=== PATIENT | female | born 1970 | race Caucasian/White ===

== ENCOUNTER → 2017-12-07 | Emergency (ER) | payer OTHER ==
[~2017-12-07] VITALS: Ht 160 cm; Wt 59.0 kg
[~2017-12-07] MED LIST: FIORICET 50-321 EACH PO; FLONASE ALLERG9.9 ML NASAL; KETO10TA2 PO; LEVSIN/SL0.125 MG SL; MEDROLPACK PO; ZITHROMAX TRI-500 MG PO; ZOFRAN4 MG PO
== END | disposition home or self-care (01) ==
LOC: ER 23:39
DX: J32.8 Other chronic sinusitis (principal); E86.0 Dehydration; R50.9 Fever, unspecified

== ENCOUNTER 2018-06-14 23:22 | Emergency (ER) | payer OTHER ==
[~2018-06-14] VITALS: Ht 160 cm; Wt 61.2 kg
[2018-06-15] MEDS ORDERED: ZITHROMAX500 MG PO (06:38)
[2018-06-15] MEDS ORDERED: MEDROLPACK PO (06:38)
[2018-06-15] MEDS ORDERED: MUCINEX DM ER1 EAC1 PO (06:38)
[2018-06-15] MEDS ORDERED: BUDESONIDE0.5 MG/2 M IH (06:38)
[2018-06-15] MEDS ORDERED: PROMETH-CODEIN 65 ML PO (06:38)
[2018-06-15] MEDS ORDERED: IPRAT-ALBUT 0.5-3 ML IH (06:38)
== END 2018-06-15 08:10 | disposition home or self-care (01) ==
LOC: ER 23:22
DX: J06.9 Acute upper respiratory infection, unspecified (principal)

== ENCOUNTER 2018-11-15 12:06 | Emergency (ER) | payer OTHER ==
[~2018-11-15] VITALS: Ht 160 cm; Wt 63.5 kg
[~2018-11-15 12:06] MED LIST changes: +BUDESONIDE0.5 MG/2 M IH; +IPRAT-ALBUT 0.5-3 ML IH; +MUCINEX DM ER1 EAC1 PO; +PROMETH-CODEIN 65 ML PO; +ZITHROMAX500 MG PO
== END 2018-11-15 16:22 | disposition home or self-care (01) ==
LOC: ER 12:06
DX: B34.9 Viral infection, unspecified (principal)

== ENCOUNTER 2019-08-02 01:08 | Emergency (ER) | payer OTHER ==
[~2019-08-02] VITALS: Ht 160 cm; Wt 66.2 kg
[2019-08-02] MEDS ORDERED: LISINOPRIL10 MG (01:24)
== END 2019-08-02 14:16 | disposition home or self-care (01) ==
LOC: ER 01:08 → CPU-OBS 01:10 → ER 01:10
DX: R07.89 Other chest pain (principal); M94.0 Chondrocostal junction syndrome [Tietze]
CPT/HCPCS: G0378; G0379; 93005

== ENCOUNTER 2021-03-07 15:04 | Emergency (ER) | payer OTHER ==
[~2021-03-07] VITALS: Ht 160 cm; Wt 65.8 kg
[~2021-03-07 15:04] MED LIST changes: +LISINOPRIL10 MG
[2021-03-07] MEDS ORDERED: IVERMECTIN3 MG PO (22:15)
[2021-03-07] MEDS ORDERED: PULMICORT FLEX90 MCG IH (22:17)
[2021-03-07] MEDS ORDERED: PROVENTIL HFA6.7 GM IH (22:22)
== END 2021-03-07 22:36 | disposition home or self-care (01) ==
LOC: ER 15:04
DX: U07.1 COVID-19 (principal); R05 Cough

== ENCOUNTER 2021-10-19 22:38 | Emergency (ER) | payer OTHER ==
[~2021-10-19] VITALS: Ht 160 cm; Wt 68.5 kg
[~2021-10-19 22:38] MED LIST changes: +IVERMECTIN3 MG PO; +PROVENTIL HFA6.7 GM IH; +PULMICORT FLEX90 MCG IH
[2021-10-19] MEDS ORDERED: LOPRESSOR HCT1 EACH (22:49)
[2021-10-20] MEDS ORDERED: PEPCID40 MG PO (05:35)
[2021-10-20] MEDS ORDERED: LEVSIN/SL0.125 MG SL (05:35)
[2021-10-20] MEDS ORDERED: PROTONIX40 MG PO (05:35)
[2021-10-20] MEDS ORDERED: ZOFRAN8 MG PO (05:35)
== END 2021-10-20 06:02 ==
LOC: ER 22:38
DX: R10.9 Unspecified abdominal pain (principal)

== ENCOUNTER 2023-01-01 23:15 | Emergency (ER) | payer OTHER ==
[~2023-01-01] VITALS: Ht 160 cm; Wt 73.0 kg
[~2023-01-01 23:15] MED LIST changes: +LOPRESSOR HCT1 EACH; +PEPCID40 MG PO; +PROTONIX40 MG PO; +ZOFRAN8 MG PO
[2023-01-01] MEDS ORDERED: NEURONTIN800 MG PO (23:26)
[2023-01-01] MEDS ORDERED: ZESTRIL10 M1 PO (23:26)
[2023-01-01] MEDS ORDERED: ZIPSOR25 MG (23:28)
[2023-01-01] MEDS ORDERED: NORFLEX100MG PO (23:29)
== END 2023-01-02 05:43 | disposition home or self-care (01) ==
LOC: ER 23:15
DX: N20.1 Calculus of ureter (principal)

== ENCOUNTER 2024-03-02 23:30 | Emergency (ER) | payer OTHER ==
[~2024-03-02] VITALS: Ht 167.6 cm; Wt 72.6 kg
[~2024-03-02 23:30] MED LIST changes: +NEURONTIN800 MG PO; +NORFLEX100MG PO; +ZESTRIL10 M1 PO; +ZIPSOR25 MG
[2024-03-03] MEDS ORDERED: MEPERIDINE HCL/PF 50 MG/ML VIAL IM STA (00:42)
[2024-03-03] MEDS ORDERED: ONDANSETRON HCL 2 MG/ML VIAL IV STA (00:42)
[2024-03-03] MEDS ORDERED: FAMOTIDINE/PF 20 MG/2 ML VIAL IV PUSH STA (00:42)
[2024-03-03] MEDS ORDERED: SODIUM CHLORIDE 0.45 % 1,000 ML IV ONE (00:45)
[2024-03-03 01:28] LABS: HEMATOCRIT 39.4 % (36.0-45.00); HEMOGLOBIN 13.2 g/dL (12.0-15.00); MEAN CELL VOLUME 88.6 fL (80.00-100.00); MEAN CORPUSCULAR HEMOGLOBIN 29.6 pg (27.00-32.0); MEAN CORPUSCULAR HGB CONC 33.4 g/dl (32.0-36.0); PLATELET COUNT 315 K/uL (150-450); RED BLOOD COUNT 4.45 M/uL (4.00-6.00); RED CELL DISTRIBUTION WIDTH 13.5 % (11.5-14.5)
[2024-03-03 01:37] LABS: PH,URINE 6.5 (5.0-8.0); URINE APPEARANCE Clear; URINE BILIRRUBIN Negative (NEGATIVE); URINE BLOOD Negative; URINE COLOR Yellow; URINE GLUCOSE Negative (NEGATIVE); URINE LEUKOCYTE Negative; URINE NITRATE Negative; URINE PROTEIN Negative (NEGATIVE); URINE UROBILINOGEN 0.2 E.U./dl
[2024-03-03 01:41] LABS: URINE BACTERIA 12.5 uL (0.0-1933); URINE EPITHELIAL CELLS 4.3 uL (0.0-38.8); URINE RBC 2.4 uL (0.0-20.8); URINE WBC 2.1 uL (0.0-23.2)
[2024-03-03 01:44] LABS: CALCIUM 9.3 mg/dL (8.5-10.1); CREATININE SERUM 0.69 mg/dL (0.55-1.02); GFR 88.66; POTASSIUM 4.1 mEq/L (3.5-5.1)
[2024-03-03] MEDS ORDERED: PEPCID40 MG PO (04:24)
[2024-03-03] MEDS ORDERED: PROTONIX40 MG PO (04:24)
[2024-03-03] MEDS ORDERED: NABUMETONE750 MG PO (04:24)
[2024-03-03] MEDS ORDERED: TAMS0.4C PO (04:24)
== END 2024-03-03 04:28 ==
LOC: ER 23:30
PROVIDERS: General Practice
DX: R10.9 Unspecified abdominal pain (principal); R10.13 Epigastric pain; I10 Essential (primary) hypertension; Z87.442 Personal history of urinary calculi; K57.30 Diverticulosis of large intestine without perforation or abscess without bleeding; N20.0 Calculus of kidney

== ENCOUNTER 2025-01-15 13:02 | Emergency (ER) | payer OTHER ==
[~2025-01-15] VITALS: Ht 160 cm; Wt 68.0 kg
[~2025-01-15 13:02] MED LIST changes: +NABUMETONE750 MG PO; +TAMS0.4C PO
[2025-01-15] MEDS ORDERED: FAMOTIDINE/PF 20 MG/2 ML VIAL IV ONE (14:45)
[2025-01-15] MEDS ORDERED: SUCRALFATE 1 G TABLET PO ONE (15:00)
[2025-01-15] MEDS ORDERED: FAMOTIDINE/PF 20 MG/2 ML VIAL ONE (15:35)
[2025-01-15 15:58] LABS: HEMATOCRIT 39.9 % (36.0-45.00); HEMOGLOBIN 13.7 g/dL (12.0-15.00); MEAN CORPUSCULAR HEMOGLOBIN 30.5 pg (27.00-32.0); MEAN CORPUSCULAR HGB CONC 34.3 g/dl (32.0-36.0); PLATELET COUNT 273 K/uL (150-450); RED BLOOD COUNT 4.48 M/uL (4.00-6.00); RED CELL DISTRIBUTION WIDTH 13.1 % (11.5-14.5)
[2025-01-15 16:15] LABS: ALBUMIN 3.9 gm/dL (3.4-5.0); BILIRUBIN TOTAL 0.3 mg/dL (0.3-1.2); CALCIUM 9.7 mg/dL (8.5-10.1); CREATININE SERUM 0.54 mg/dL (0.55-1.02); GFR 117.21; GLOBULINA 4.6 G/DL (2.4-3.5); POTASSIUM 3.76 mEq/L (3.5-5.1); TOTAL PROTEIN 8.5 gm/dL (6.4-8.2)
[2025-01-15] MEDS ORDERED: KETOROLAC TROMETHAMINE 30 MG VIAL IV ONE (16:30)
[2025-01-15] MEDS ORDERED: hydrALAZINE HCL 20 MG VIAL ONE (16:38)
[2025-01-15] MEDS ORDERED: KETOROLAC TROMETHAMINE 30 MG VIAL ONE (16:38)
[2025-01-15] MEDS ORDERED: hydrALAZINE HCL 20 MG VIAL IV ONE (16:45)
[2025-01-15 16:53] LABS: PH,URINE 7.5 (5.0-8.0); URINE APPEARANCE Clear; URINE BILIRRUBIN Negative (NEGATIVE); URINE BLOOD Negative; URINE COLOR Yellow; URINE GLUCOSE Negative (NEGATIVE); URINE KETONE Negative (NEGATIVE); URINE LEUKOCYTE Trace; URINE NITRATE Negative; URINE PROTEIN Negative (NEGATIVE); URINE UROBILINOGEN 0.2 E.U./dl
[2025-01-15 17:04] LABS: URINE BACTERIA 1233.7 uL (0.0-1933); URINE EPITHELIAL CELLS 90.3 uL (0.0-38.8); URINE RBC 5.8 uL (0.0-20.8); URINE WBC 16.1 uL (0.0-23.2)
[2025-01-15 17:23] LABS: URINE CAST 0.14 uL (0.0-1.40)
[2025-01-15] MEDS ORDERED: TRIAMCINOLONE ACETONIDE 40 MG/ML VIAL IM ONE (19:15)
[2025-01-15] MEDS ORDERED: ORPHENADRINE CITRATE 30 MG/ML AMPUL IM ONE (19:15)
[2025-01-15] MEDS ORDERED: CARAFATE1 GM PO (19:19)
[2025-01-15] MEDS ORDERED: NORFLEX100MG PO (19:19)
[2025-01-15] MEDS ORDERED: TRIAMCINOLONE ACETONIDE 40 MG/ML VIAL ONE (19:39)
[2025-01-15] MEDS ORDERED: ORPHENADRINE CITRATE 30 MG/ML AMPUL ONE (19:39)
== END 2025-01-15 20:10 ==
LOC: ER 13:05
PROVIDERS: Emergency Medicine
DX: R10.13 Epigastric pain (principal); I10 Essential (primary) hypertension; K29.70 Gastritis, unspecified, without bleeding; M79.7 Fibromyalgia; Z87.442 Personal history of urinary calculi

== ENCOUNTER 2025-02-26 21:29 | Emergency (ER) | payer OTHER ==
[~2025-02-26] VITALS: Ht 160 cm; Wt 65.8 kg
[~2025-02-26 21:29] MED LIST changes: +CARAFATE1 GM PO; +SINGULAIR10 MG PO
[2025-02-26 21:44] VITALS: BP 143/87; O2SAT 99
[2025-02-26] MEDS ORDERED: IRBESARTAN-HCT1 EAC1 PO (21:48)
[2025-02-26] MEDS ORDERED: GUAIFENESIN 200 MG/10 ML BLIST.PACK PO ONE ×2 (22:07→22:15)
[2025-02-26] MEDS ORDERED: LORATADINE 10 MG TABLET PO ONE (22:15)
[2025-02-26 23:16] LABS: HEMATOCRIT 37.1 % (36.0-45.00); HEMOGLOBIN 12.6 g/dL (12.0-15.00); MEAN CELL VOLUME 87.8 fL (80.00-100.00); MEAN CORPUSCULAR HEMOGLOBIN 29.7 pg (27.00-32.0); MEAN CORPUSCULAR HGB CONC 33.9 g/dl (32.0-36.0); PLATELET COUNT 287 K/uL (150-450); RED BLOOD COUNT 4.23 M/uL (4.00-6.00); RED CELL DISTRIBUTION WIDTH 12.9 % (11.5-14.5)
== END 2025-02-27 00:04 | disposition home or self-care (01) ==
LOC: ER 21:31
PROVIDERS: General Practice
DX: J00 Acute nasopharyngitis [common cold] (principal); Z20.822 Contact with and (suspected) exposure to COVID-19; I10 Essential (primary) hypertension; M79.7 Fibromyalgia; Z87.09 Personal history of other diseases of the respiratory system

== ENCOUNTER 2025-03-30 09:09 | Outpatient (CLI) | payer OTHER ==
[~2025-03-30 09:09] MED LIST changes: +IRBESARTAN-HCT1 EAC1 PO
== END 2025-03-30 09:10 | disposition home or self-care (01) ==
LOC: TOM 09:09
DX: R19.5 Other fecal abnormalities (principal); C18.9 Malignant neoplasm of colon, unspecified; K57.92 Diverticulitis of intestine, part unspecified, without perforation or abscess without bleeding; K59.00 Constipation, unspecified; I67.82 Cerebral ischemia

== ENCOUNTER 2025-04-27 08:16 | Emergency (ER) | payer OTHER ==
[~2025-04-27] VITALS: Ht 160 cm; Wt 67.6 kg
[2025-04-27] MEDS ORDERED: 0.9 % SODIUM CHLORIDE 1,000 ML IV STA (08:53)
[2025-04-27] MEDS ORDERED: CEFTRIAXONE SODIUM 1,000 MG VIAL ONE (08:59)
[2025-04-27] MEDS ORDERED: ACETAMINOPHEN 500 MG GEL..CAP PO ONE ×2 (08:59→09:00)
[2025-04-27] MEDS ORDERED: CEFTRIAXONE SODIUM 1,000 MG VIAL IV ONE (09:00)
[2025-04-27 10:02] LABS: BASO % 0.2 % (0.1-1.2); HEMATOCRIT 33.3 % (34.1-44.9); HEMOGLOBIN 11.6 g/dL (11.2-15.7); LYMPH % 12.2 % (19.3-53.1); MEAN CORPUSCULAR HEMOGLOBIN 30.8 pg (25.6-32.2); MONO # 0.34 (0.24-0.82); MONO % 5.2 % (4.7-12.5); NEUT # 5.35 (1.56-6.13); NEUT % 81.5 % (34.0-71.1); PLATELET COUNT 280 K/uL (163-369); RED BLOOD COUNT 3.77 M/uL (3.93-5.22); RED CELL DISTRIBUTION WIDTH 13.9 % (11.6-14.4)
[2025-04-27 10:15] LABS: CALCIUM 9.3 mg/dL (8.5-10.1); CREATININE SERUM 0.74 mg/dL (0.55-1.02); GFR 81.48; POTASSIUM 3.92 mEq/L (3.5-5.1)
[2025-04-27 10:40] LABS: PH,URINE 8.5 (5.0-8.0); URINE APPEARANCE Clear; URINE BILIRRUBIN Negative (NEGATIVE); URINE BLOOD Negative; URINE COLOR Yellow; URINE GLUCOSE Negative (NEGATIVE); URINE KETONE Trace (NEGATIVE); URINE LEUKOCYTE Small; URINE NITRATE Positive; URINE PROTEIN 30 (NEGATIVE)
[2025-04-27 10:41] LABS: URINE EPITHELIAL CELLS 10.1 uL (0.0-38.8); URINE RBC 5.8 uL (0.0-20.8); URINE WBC 50.6 uL (0.0-23.2)
[2025-04-27 10:44] LABS: URINE BACTERIA > 9821.5 uL (0.0-1933); URINE CAST 0.73 uL (0.0-1.40)
== END 2025-04-27 13:09 | disposition home or self-care (01) ==
LOC: ER 08:16
PROVIDERS: Emergency Medicine
DX: N20.2 Calculus of kidney with calculus of ureter (principal); N39.0 Urinary tract infection, site not specified; R10.9 Unspecified abdominal pain; Z87.442 Personal history of urinary calculi; I10 Essential (primary) hypertension

== ENCOUNTER 2025-06-08 11:29 | Outpatient (CLI) | payer OTHER | END 2025-06-08 11:31 | disposition home or self-care (01) | LOC: MRI 11:29 | PROVIDERS: ATTEND Student in an Organized Health Care Education/Training Program | DX: M54.50 Low back pain, unspecified (principal); M48.061 Spinal stenosis, lumbar region without neurogenic claudication; B94.8 Sequelae of other specified infectious and parasitic diseases; J45.909 Unspecified asthma, uncomplicated | CPT/HCPCS: 72148 ==

== ENCOUNTER 2025-09-11 19:01 | Emergency (ER) | payer OTHER ==
[~2025-09-11] VITALS: Ht 160 cm; Wt 68.0 kg
[2025-09-11] MEDS ORDERED: PROMETHAZINE HCL 50 MG/ML AMPUL IM ONE ×2 (22:30→23:11)
[2025-09-11] MEDS ORDERED: TAMSULOSIN HCL 0.4 MG CAP PO ONE ×2 (22:30→23:11)
[2025-09-11] MEDS ORDERED: KETOROLAC TROMETHAMINE 30 MG VIAL IV ONE (22:45)
[2025-09-11] MEDS ORDERED: 0.9 % SODIUM CHLORIDE 1,000 ML IV SCH (22:45)
[2025-09-11] MEDS ORDERED: DEXAMETHASONE SODIUM PHOSPHATE 4 MG/ML VIAL IV ONE (22:45)
[2025-09-11] MEDS ORDERED: HYOSCYAMINE SULFATE 0.125 MG TAB.SUBL PO ONE (22:45)
[2025-09-11] MEDS ORDERED: KETOROLAC TROMETHAMINE 30 MG VIAL ONE (23:11)
[2025-09-11] MEDS ORDERED: HYOSCYAMINE SULFATE 0.125 MG TAB.SUBL ONE (23:12)
[2025-09-11] MEDS ORDERED: DEXAMETHASONE SODIUM PHOSPHATE 4 MG/ML VIAL ONE (23:12)
[2025-09-12 00:02] LABS: BASO % 0.2 % (0.1-1.2); EOS # 0.11 (0.04-0.54); EOS % 1.7 % (0.7-7.0); LYMPH # 1.14 (1.18-3.74); LYMPH % 17.4 % (19.3-53.1); MEAN PLATELET VOLUME 9.60 fl (9.4-12.4); MONO # 0.34 (0.24-0.82); MONO % 5.2 % (4.7-12.5); NEUT # 4.92 (1.56-6.13); NEUT % 75.2 % (34.0-71.1); RED CELL DISTRIBUTION WIDTH 11.9 % (11.6-14.4)
[2025-09-12 00:08] LABS: URINE APPEARANCE Cloudy; URINE BILIRRUBIN Negative (NEGATIVE); URINE BLOOD Negative; URINE COLOR Dark Yellow; URINE GLUCOSE Negative (NEGATIVE); URINE KETONE Negative (NEGATIVE); URINE LEUKOCYTE Small; URINE NITRATE Positive; URINE PROTEIN Negative (NEGATIVE); URINE UROBILINOGEN 0.2 E.U./dl
[2025-09-12 00:12] LABS: URINE CAST 2.63 uL (0.0-1.40); URINE EPITHELIAL CELLS 11.9 uL (0.0-38.8); URINE RBC 2.1 uL (0.0-20.8); URINE WBC 290.9 uL (0.0-23.2)
[2025-09-12 00:43] LABS: ALT/SGPT 59.0 U/L (12-78); AST/SGOT 31.0 U/L (15-37); BILIRUBIN TOTAL 0.47 mg/dL (0.3-1.2); BUN CREA RATIO 31.0 (7.0-25.0); CREATININE SERUM 0.58 mg/dL (0.55-1.02); GFR 107.93; GLOBULINA 3.8 G/DL (2.4-3.5); GLUCOSE FASTING 108.0 mg/dL (65-100); OSMOLALITY SERUM 286.0 MOSM/KG (275-295)
[2025-09-12 00:52] LABS: URINE BACTERIA > 9821.5 uL (0.0-1933); URINE MUCUS MODERATE
[2025-09-12] MEDS ORDERED: CEFTRIAXONE SODIUM 2,000 MG VIAL IV ONE (02:15)
[2025-09-12] MEDS ORDERED: CEFTRIAXONE SODIUM 2,000 MG VIAL ONE (02:28)
== END 2025-09-12 04:15 | disposition home or self-care (01) ==
LOC: ER 19:01
PROVIDERS: General Practice
DX: N39.0 Urinary tract infection, site not specified (principal); R10.9 Unspecified abdominal pain; I10 Essential (primary) hypertension
CPT/HCPCS: 36415; 74176; 96365; 96366; 96372; 99284; J0696; J1100; J1885; J3490; J7030

== ENCOUNTER 2025-10-15 07:23 | Outpatient (CLI) | payer OTHER | END 2025-10-15 07:24 | disposition home or self-care (01) | LOC: NUCLEAR 07:23 | DX: K80.20 Calculus of gallbladder without cholecystitis without obstruction (principal) ==